=== PATIENT | female | born 1975 | race Caucasian/White ===

== ENCOUNTER 2019-05-18 08:11 | Outpatient (CLI) | payer BC | END 2019-05-18 23:59 | disposition home or self-care (01) | LOC: RAD 08:11 | PROVIDERS: ATTEND Internal Medicine | DX: K50.919 Crohn's disease, unspecified, with unspecified complications (principal); K56.699 Other intestinal obstruction unspecified as to partial versus complete obstruction | CPT/HCPCS: 74250 ==